=== PATIENT | female | born 1980 | race Caucasian/White ===

== ENCOUNTER 2025-03-27 15:12 | Emergency (ER) | payer BC, OTHER, SELFPAY ==
[2025-03-27 15:17] VITALS: BP 133/90
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
[2025-03-27] MEDS: GENOPTIC 0.3% EYE DROPS 1 DROP OPHTH (16:43)
== END 2025-03-27 16:52 | disposition home or self-care (01) ==
LOC: EMR 15:12
PROVIDERS: EMERGENCY PHYSICIAN Emergency Medicine; FAMILY PHYSICIAN Family Medicine
DX: T15.90XA Foreign body on external eye, part unspecified, unspecified eye, initial encounter (principal); W44.9XXA Unspecified foreign body entering into or through a natural orifice, initial encounter
CPT/HCPCS: 99282

== ENCOUNTER 2025-04-08 16:06 | Emergency (ER) | payer SELFPAY ==
[2025-04-08 16:21] VITALS: BP 131/93
--- NOTE | 2025-04-08 16:38 | EDRN ---
Dr. Melgar in room w/ pt at this time.
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
--- NOTE | 2025-04-08 17:42 | EDRN ---
Contact for [facility] nurse called and is notifying these people at this time.
--- NOTE | 2025-04-08 18:45 | EDRN ---
MUMTAZ BURRELL in room w/ pt.
[2025-04-08 20:35] VITALS: BP 123/87
[2025-04-08 20:43] LABS: HCG, Urine Qualitative Screen Negative
[2025-04-08] MEDS: FLAGYL 500 MG PO (21:09)
[2025-04-08] MEDS: ROCEPHIN 500 MG IM (21:09)
[2025-04-08] MEDS: VIBRAMYCIN 100 MG PO (21:09)
== END 2025-04-08 21:17 | disposition home or self-care (01) ==
LOC: EMR 16:06
PROVIDERS: EMERGENCY PHYSICIAN Emergency Medicine
DX: Z04.41 Encounter for examination and observation following alleged adult rape (principal)
CPT/HCPCS: 99285; 96372; 81025